=== PATIENT | male | born 2000 ===

== ENCOUNTER → 2018-07-06 | Outpatient (CLI) | payer SELFPAY ==
[2018-07-09 02:11] LABS: CHLAMYDIA TRACHOMATIS, NAA Negative (Negative); NEISSERIA GONORRHOEAE, NAA Negative (Negative)
== END | disposition home or self-care (01) ==
LOC: LAB SHORT 16:33 → LAB EV 16:33
PROVIDERS: Physician Assistant
DX: N39.0 Urinary tract infection, site not specified (principal)
CPT/HCPCS: 87070; 87086; 87205; 87491; 87591

== ENCOUNTER → 2018-11-12 | Outpatient (CLI) | payer SELFPAY ==
[2018-11-16 12:05] LABS: CHLAMYDIA BY NAA Negative (Negative); GONOCOCCUS BY NAA Negative (Negative); TRICH VAG BY NAA Negative (Negative)
== END | disposition home or self-care (01) ==
LOC: LAB SHORT 09:20 → LAB EV 09:20
PROVIDERS: Physician Assistant
DX: N34.2 Other urethritis (principal)
CPT/HCPCS: 87491; 87591; 87661